=== PATIENT | female | born 1980 | race Caucasian/White ===

== ENCOUNTER 2021-08-28 05:50 | Inpatient (IN) | payer BC, SELFPAY ==
[~2021-08-28] VITALS: Ht 160 cm; Wt 62.6 kg
[2021-08-28 06:20] LABS: HCG,QUAL RESULT NEGATIVE (NEGATIVE)
[2021-08-28] MEDS ORDERED: CEFAZOLIN SOD 1 GM in D5W 50 ML IV ONE (06:45)
[2021-08-28] MEDS ORDERED: KETOROLAC TROMETHAMINE 30 MG VIAL IVP PRN (08:45)
[2021-08-28] MEDS ORDERED: ONDANSETRON HCL 4 MG/2 ML VIAL IVP PRN ×2 (08:45→10:00)
[2021-08-28] MEDS ORDERED: MEPERIDINE HCL/PF 25 MG/ML DISP.SYRIN IVP PRN (08:45)
[2021-08-28] MEDS ORDERED: LR 1,000 ML IV SCH ×2 (08:45→10:00)
[2021-08-28] MEDS ORDERED: NALOXONE HCL 0.4 MG/ML AMP (NARCAN) IVP PRN ×2 (08:45)
[2021-08-28] MEDS ORDERED: ZIT250 PO (09:38)
[2021-08-28] MEDS ORDERED: ASCO500T20 PO (09:38)
[2021-08-28] MEDS ORDERED: MONT10TA22 (09:38)
[2021-08-28] MEDS ORDERED: [UNRECOGNIZED DRUG - CODE] PO (09:38)
[2021-08-28] MEDS ORDERED: IBUP-1619 PO (09:38)
[2021-08-28] MEDS ORDERED: OXYCODONE/ACETAMINOPHEN 5-325 TABLET PO PRN (10:00)
[2021-08-28 10:04] VITALS: BP_SYST 156
[2021-08-28] MEDS ORDERED: fentaNYL CITRATE/PF 100 MCG/2 ML AMP ONE (10:15)
[2021-08-28] MEDS ORDERED: LR 1,000 ML IV.SOLN IV ONE (10:15)
[2021-08-28] MEDS ORDERED: DEXAMETHASONE SOD PHOSPHATE 4 MG/ML VIAL ONE (10:15)
[2021-08-28] MEDS ORDERED: HYDROmorphone 2 MG/ML VIAL ONE (10:15)
[2021-08-28] MEDS ORDERED: PROPOFOL 200MG/ 20ML VIAL (DIPRIVAN) IV ONE (10:15)
[2021-08-28] MEDS ORDERED: ROCURONIUM BROMIDE 10 MG/ML (ZEMURON) ONE (10:15)
[2021-08-28] MEDS ORDERED: SEVOFLURANE 15 MIN GAS INH ONE (10:15)
[2021-08-28] MEDS ORDERED: NS IRRIG SOLN 1000 ML IR ONE (10:15)
[2021-08-28] MEDS ORDERED: METOCLOPRAMIDE HCL 10 MG/2 ML VIAL ONE (10:15)
[2021-08-28] MEDS ORDERED: ONDANSETRON HCL 4 MG/2 ML VIAL ONE (10:15)
[2021-08-28] MEDS ORDERED: MIDAZOLAM HCL 5 MG/ML VIAL (VERSED) IV ONE (10:15)
[2021-08-28] MEDS: HYDROmorphone 1 MG/ML INJ. CARTRIDGE IVP PRN ×2 (10:20→10:41)
[2021-08-28] MEDS ORDERED: HYDROmorphone 1 MG/ML INJ. CARTRIDGE ONE (10:30)
[2021-08-28] MEDS: OXYCODONE/ACETAMINOPHEN 5-325 TABLET PO PRN (11:49)
[2021-08-28] MEDS ORDERED: HYDROmorphone 1 MG/ML INJ. CARTRIDGE IVP PRN (12:00)
[2021-08-28] MEDS: SIMETHICONE 80 MG TAB.CHEW PO PRN ×3 (12:31→18:56)
[2021-08-28] MEDS: IBUPROFEN 800 MG TABLET PO PRN (15:52)
[2021-08-28] MEDS ORDERED: TEMAZEPAM 15 MG CAPSULE PO PRN (21:00)
[2021-08-28] MEDS ORDERED: SENNOSIDES/DOCUSATE SODIUM 1 TAB TABLET(SENOKOT-S) PO PRN ×2 (21:00)
[2021-08-29] MEDS: SIMETHICONE 80 MG TAB.CHEW PO PRN ×5 (04:27→17:33)
[2021-08-29] MEDS: IBUPROFEN 800 MG TABLET PO PRN ×3 (04:28→17:33)
[2021-08-29 07:51] LABS: HEMATOCRIT 39.4 % (36-48); HEMOGLOBIN 13.2 g/dL (12.0-16.0)
[2021-08-29] MEDS ORDERED: DOCUSATE SODIUM 100 MG CAPSULE PO ONE (11:15)
[2021-08-29] MEDS: OXYCODONE/ACETAMINOPHEN 5-325 TABLET PO PRN (17:53)
[2021-08-29] MEDS ORDERED: DOCUSATE SODIUM 100 MG CAPSULE PO SCH (21:00)
== END 2021-08-29 18:00 | disposition home or self-care (01) | DRG 743 ==
LOC: SMU 05:50 → SPU 11:28
PROVIDERS: ADMIT Obstetrics & Gynecology; ATTEND Obstetrics & Gynecology
PROC: 0UB70ZZ Excision of Bilateral Fallopian Tubes, Open Approach (ICD-10-PCS; 2021-08-28)
PROC: 0UT90ZZ Resection of Uterus, Open Approach (ICD-10-PCS; principal; 2021-08-28 07:30)
DX: D25.9 Leiomyoma of uterus, unspecified (principal); Z20.822 Contact with and (suspected) exposure to COVID-19
CPT/HCPCS: 36415; 84703; 85018; 86886; 86900; 86901; 87081; 88305; 88307; J0690; J1100; J1170; J2250; J2405; J2704; J2765; J3010; J7060; J7120; U0003